=== PATIENT | female | born 2000 | race African-American/Black ===

== ENCOUNTER 2020-08-12 19:21 | Observation (INO) | payer BC ==
[2020-08-12] MEDS ORDERED: IV RINGERS,LACTATED 1000ML 1,000 ML IV SCH (19:30)
[2020-08-12 20:06] LABS: BILIRUBIN,URINE NEGATIVE (NEG); CLARITY,URINE CLEAR; COLOR,URINE YELLOW; NITRITE,URINE NEGATIVE (NEG); PH,URINE 7.5 (<5.0-8.0); PROTEIN,URINE NEGATIVE (NEG-TRACE)
[2020-08-12 20:18] LABS: BACTERIA,URINE FEW /HPF (0-FEW)
[2020-08-12 20:19] LABS: RBC,URINE 0 /HPF (0-2)
== END 2020-08-12 21:50 | disposition home or self-care (01) ==
LOC: 3 SO LND 19:21
PROVIDERS: ADMIT Obstetrics & Gynecology; ATTEND Obstetrics & Gynecology
DX: O26.893 Other specified pregnancy related conditions, third trimester (principal); R10.30 Lower abdominal pain, unspecified; Z3A.32 32 weeks gestation of pregnancy; Z98.891 History of uterine scar from previous surgery
CPT/HCPCS: 59025; 81001; 87086; G0378; G0379

== ENCOUNTER 2020-08-24 21:03 | Inpatient (IN) | payer BC ==
[~2020-08-24] VITALS: Ht 157.5 cm; Wt 64.1 kg
[2020-08-24 21:25] VITALS: BP 106/66
[2020-08-24 21:31] LABS: BILIRUBIN,URINE NEGATIVE (NEG); CLARITY,URINE CLEAR; COLOR,URINE YELLOW; NITRITE,URINE NEGATIVE (NEG); PH,URINE 7.5 (<5.0-8.0); PROTEIN,URINE 30 mg/dL (NEG-TRACE)
[2020-08-24 21:37] LABS: AMORPHOUS SEDIMENT,UR PRESENT /HPF
[2020-08-24 21:38] LABS: BACTERIA,URINE 0 /HPF (0-FEW)
[2020-08-24 21:44] LABS: BARBITURATES NEG (NEG); BENZODIAZEPINES NEG (NEG); CANNABINOIDS NEG (NEG); COCAINE NEG (NEG); METHADONE NEG (NEG); OPIATES NEG (NEG); PHENCYCLIDINE NEG (NEG)
[2020-08-24 21:50] LABS: AMPHETAMINE/METHAMPHETAMINE NEG (NEG)
[2020-08-24 21:55] LABS: AMNIO PT POSITIVE
[2020-08-24] MEDS ORDERED: IBUPROFEN 400 MG TABLET. PO PRN (22:00)
[2020-08-24] MEDS ORDERED: TERBUTALINE 1 MG/ML VIAL. SQ PRN ×2 (22:00→22:30)
[2020-08-24] MEDS ORDERED: OXYTOCIN 30 UNIT/500 ML PREMIX 500 ML IV PRN ×2 (22:00)
[2020-08-24] MEDS ORDERED: ACETAMINOPHEN 325 MG TABLET. PO PRN (22:00)
[2020-08-24] MEDS ORDERED: BUTORPHANOL 2 MG/ML VIAL. IVP PRN ×2 (22:00)
[2020-08-24] MEDS ORDERED: fentaNYL PF VIAL 100 MCG/2 ML VIAL IVP PRN ×3 (22:00)
[2020-08-24] MEDS ORDERED: LIDOCAINE 1% PF 30 ML VIAL. INJ PRN (22:00)
[2020-08-24] MEDS ORDERED: ONDANSETRON PF 4 MG/2 ML VIAL. IVP PRN (22:00)
[2020-08-24] MEDS ORDERED: 0.9 % SODIUM CHLORIDE 10 ML DISP.SYRIN. IV PRN (22:00)
[2020-08-24] MEDS: IV RINGERS,LACTATED 1000ML 1,000 ML IV SCH (22:01)
[2020-08-24] MEDS: BETAMET ACET&NA PHOS 30 MG/5 ML VIAL. IM SCH (22:24)
[2020-08-24 22:47] LABS: BASO % 0 % (0-3); EOS # 0.1 x10^3/uL (0.0-0.7); EOS % 1 % (0-3); HEMATOCRIT 30.6 % (36.0-47.0); HEMOGLOBIN 9.4 g/dL (12.0-15.5); LYMPH # 2.8 x10^3/uL (1.0-4.8); LYMPH % 25 % (24-48); MEAN CORPUSCULAR HEMOGLOBIN 22 pg (25-35); MEAN CORPUSCULAR HGB CONC 31 g/dL (31-37); MEAN CORPUSCULAR VOLUME 72 fL (79-100); MONO # 1.2 x10^3/uL (0.0-1.1); MONO % 10 % (0-9); NEUT # 7.4 x10^3/uL (1.8-7.7); NEUT % 65 % (31-73); PLATELET COUNT 304 x10^3/uL (140-400); RED BLOOD COUNT 4.26 x10^6/uL (3.50-5.40); RED CELL DISTRIBUTION WIDTH 17.6 % (11.5-14.5); WHITE BLOOD COUNT 11.4 x10^3/uL (4.0-11.0)
[2020-08-24] MEDS ORDERED: AMPICILLIN SODIUM 2 GM in IV NORMAL SALINE 100ML 100 ML IV ONE (23:00)
--- NOTE | 2020-08-24 23:36 | RAD ---
EXAM: Ultrasound US OB LIMITED 08/24/2020 10:34 PM INDICATION: Dates. Water broke COMPARISON: None FINDINGS: There is a single living intrauterine gestation in cephalic position. heart rate is [address] acenta is anterior. biometry: Biparietal diameter: 8.45 cm, 34 weeks 0 days Head circumference: 31.69 cm, 35 weeks 4 days Abdominal circumference: 29.70 cm, 33 weeks 5 days Femur length: 6.74 cm, 34 weeks 5 days HC/AC ratio: 1.07 LEONARD: 4.7 cm Estimated gestational age by ultrasound: 34 weeks 4 days. Estimated weight: 2371 g. IMPRESSION: 1. Single living intrauterine in cephalic position, heart rate 153 bpm. LEONARD 4.7 cm. 2. Estimated gestational age by ultrasound 34 weeks 4 days, EFW: 2371 g. Electronically signed by: Cierra Badillo MD (08/24/2020 11:34 PM) [id number]
[2020-08-25] MEDS: IV RINGERS,LACTATED 1000ML 1,000 ML IV SCH ×5 (00:21→22:00)
[2020-08-25] MEDS: AMPICILLIN SODIUM 1 GM in IV NORMAL SALINE 50ML 50 ML IV SCH ×6 (02:26→22:37)
[2020-08-25 04:58] LABS: ANISOCYTOSIS SLIGHT; HYPOCHROMIA MOD; MICROCYTOSIS MOD; OVALOCYTES OCC; PLT ESTIMATE ADEQUATE (ADEQUATE); POLYCHROMASIA SLIGHT
--- NOTE | 2020-08-25 10:30 | PDOC ---
GENERAL General: 19 yrs old lady 34weeks came in with SROM. Leaking Clear Amniotic fluid. VITAL SIGNS Vital Signs/I&O: Vital Signs Date Time Temp Pulse Resp B/P (MAP) Pulse Ox O2 Delivery O2 Flow Rate FiO2 08/24/20 22:29 86 106/66 08/24/20 21:25 98.5 20 Room Air 98.5 I & O 08/24/20 08/24/20 08/25/20 15:00 23:00 07:00 Intake Total 100 ml 2050 ml Balance 100 ml 2050 ml ALLERGIES Allergies: Allergies Coded Allergies Type Severity Reaction Last Updated Verified No Known Drug Allergies 08/24/20 No MEDS Medications: Current Medications Medications (Trade) Dose Ordered Sig/Samantha Route PRN Reason Start Time Stop Time Status Last Admin Dose Admin Ringer's Solution 1,000 ml @ 125 mls/hr Q8H IV 08/24/20 21:30 08/24/20 22:01 Ringer's Solution 1,000 ml @ 125 mls/hr Q8H IV 08/24/20 22:00 08/25/20 06:26 Terbutaline Sulfate (Brethine) 0.25 mg 1X PRN PRN SQ SEE COMMENTS 08/24/20 22:00 08/25/20 21:59 08/24/20 22:29 Ampicillin Sodium 2 gm/Sodium Chloride 100 ml @ 200 mls/hr 1X ONCE IV 08/24/20 23:00 08/24/20 23:29 DC 08/24/20 22:25 Ampicillin Sodium 1 gm/Sodium Chloride 50 ml @ 100 mls/hr Q4H IV 08/25/20 03:00 08/25/20 06:26 Betamethasone Sodium Phosphate (Celestone Soluspan) 12 mg Q24H IM 08/24/20 23:00 08/25/20 23:01 08/24/20 22:24 LAB Lab: Laboratory Tests Test 08/24/20 21:24 08/24/20 21:40 08/24/20 21:55 08/25/20 00:01 Urine Collection Type Unknown Urine Color Yellow Urine Clarity Clear Urine pH 7.5 (<5.0-8.0) Urine Specific [place] 1.015 (1.000-1.030) Urine Protein 30 mg/dL (NEG-TRACE) Urine Glucose (UA) Negative mg/dL (NEG) Urine Ketones (Stick) Negative mg/dL (NEG) Urine Blood Small (NEG) Urine Nitrite Negative (NEG) Urine Bilirubin Negative (NEG) Urine Urobilinogen Dipstick 1.0 mg/dL (0.2 mg/dL) Urine Leukocyte Esterase Small (NEG) Urine RBC 6-10 /HPF (0-2) Urine WBC 1-4 /HPF (0-4) Urine Squamous Epithelial Cells Mod /LPF Urine Amorphous Sediment Present /HPF Urine Bacteria 0 /HPF (0-FEW) Urine Mucus Mod /LPF Urine Opiates Screen Neg (NEG) Urine Methadone Screen Neg (NEG) Urine Barbiturates Neg (NEG) Urine Phencyclidine Screen Neg (NEG) Urine Amphetamine/Methamphetamine Neg (NEG) Urine Benzodiazepines Screen Neg (NEG) Urine Cocaine Screen Neg (NEG) Urine Cannabinoids Screen Neg (NEG) Urine Ethyl Alcohol Neg (NEG) Amniotic Fluid Swab Test Positive White Blood Count 11.4 x10^3/uL (4.0-11.0) H Red Blood Count 4.26 x10^6/uL (3.50-5.40) Hemoglobin 9.4 g/dL (12.0-15.5) L Hematocrit 30.6 % (36.0-47.0) L Mean Corpuscular Volume 72 fL (79-100) L Mean Corpuscular Hemoglobin 22 pg (25-35) L Mean Corpuscular Hemoglobin Concent 31 g/dL (31-37) Red Cell Distribution Width 17.6 % (11.5-14.5) H Platelet Count 304 x10^3/uL (140-400) Neutrophils (%) (Auto) 65 % (31-73) Lymphocytes (%) (Auto) 25 % (24-48) Monocytes (%) (Auto) 10 % (0-9) H Eosinophils (%) (Auto) 1 % (0-3) Basophils (%) (Auto) 0 % (0-3) Neutrophils # (Auto) 7.4 x10^3/uL (1.8-7.7) Lymphocytes # (Auto) 2.8 x10^3/uL (1.0-4.8) Monocytes # (Auto) 1.2 x10^3/uL (0.0-1.1) H Eosinophils # (Auto) 0.1 x10^3/uL (0.0-0.7) Basophils # (Auto) 0.0 x10^3/uL (0.0-0.2) Platelet Estimate Adequate (ADEQUATE) Giant Platelets Occ Polychromasia Slight Hypochromasia Mod Anisocytosis Slight Microcytosis Mod Ovalocytes Occ Treponema pallidum Antibody Nonreactive (Nonreactive) SARS-CoV-2 Antigen (Rapid) Negative (NEGATIVE) Laboratory Tests 08/24/20 21:55 ASSESSMENT & PLAN A&P Vital signs stable. Abdomen soft and having Mild Contractions. Cervix dilated to 1cm.,Vertex Presenting. Sono done 34 weeks . Will start her on Antibiotics and Beta Methasone . Plan to Deliver lateron. Justifications for Admission Other Justification BETHANY LOPEZ MD Aug 25, 2020 10:29
--- NOTE | 2020-08-25 11:48 | HP ---
ADMIT DATE: HISTORY OF PRESENT ILLNESS: This patient is a 19-year-old -Turkish female who is a 2, para 1 about 34 week size and came into the hospital with a history of having contractions and leaking amniotic fluid. The patient was admitted to the hospital because of spontaneous rupture of membranes and she did have a sonogram, which shows 34 weeks 4 days of at this time. She has had a labor with the previous as well and the patient admitted to the hospital for further observation and treatment. PHYSICAL EXAMINATION: VITAL SIGNS: Reveals the vital signs being stable. ABDOMEN: Soft, has mild contractions. The heart tones are 142 per minute, vertex presenting. PELVIC: Shows cervix about 1 cm dilated and leaking clear amniotic fluid. DIAGNOSES: 2, para 1, labor, spontaneous rupture of membranes. PLAN: IV fluids, IV antibiotics, betamethasone, observation and further plan for vaginal delivery. BETHANY LOPEZ MD DR: JASON/miguel JOB#: [id number] / [id number]
[2020-08-25] MEDS: BETAMET ACET&NA PHOS 30 MG/5 ML VIAL. IM SCH (22:34)
[2020-08-26] MEDS: IV RINGERS,LACTATED 1000ML 1,000 ML IV SCH ×8 (00:40→22:00)
[2020-08-26] MEDS: AMPICILLIN SODIUM 1 GM in IV NORMAL SALINE 50ML 50 ML IV SCH ×6 (02:44→23:00)
[2020-08-26] MEDS ORDERED: OXYTOCIN 10 UNIT/ML VIAL. ONE ×2 (11:03→12:11)
[2020-08-26] MEDS ORDERED: MORPHINE PF 10 MG/10 ML AMPUL. ONE (11:03)
[2020-08-26] MEDS ORDERED: PHENYLEPHRINE in 0.9% NACL PF 1 MG/10 ML SYRINGE. IV ONE (11:03)
[2020-08-26] MEDS ORDERED: fentaNYL PF VIAL 100 MCG/2 ML VIAL ONE (11:03)
[2020-08-26] MEDS ORDERED: CITRIC ACID/SODIUM CITRATE 30 ML SOLUTION. ONE ×2 (11:24→12:00)
[2020-08-26] MEDS ORDERED: ONDANSETRON PF 4 MG/2 ML VIAL. ONE (11:41)
--- NOTE | 2020-08-26 12:46 | PDOC ---
GENERAL General: 19 yrs old lady PTL and SROM Leaking Fluid. IV Pitocin started this AM. But Baby could not tolerate has Distress. FHT90/minute. Hence Stopped the Pitocin. ALLERGIES Allergies: Allergies Coded Allergies Type Severity Reaction Last Updated Verified No Known Drug Allergies 08/24/20 No ASSESSMENT & PLAN A&P Patient scheduled for Immediate due to Distress. Under Spinal Block done and alive Male Baby 4lbs 13oz delivered with good Apgars 8//9. EBL 400cc. Justifications for Admission Other Justification BETHANY LOPEZ MD Aug 26, 2020 12:46
[2020-08-26] MEDS ORDERED: ZOLPIDEM 5 MG TABLET. PO PRN (13:00)
[2020-08-26] MEDS ORDERED: TDaP (Adacel) per PROTOCOL. MC PRN (13:00)
[2020-08-26] MEDS ORDERED: MMR per PROTOCOL. MC PRN (13:00)
[2020-08-26] MEDS ORDERED: MAG HYDROX/ALUMINUM HYD/SIMETH 30 ML ORAL.SUSP PO PRN (13:00)
[2020-08-26] MEDS ORDERED: diphenhydrAMINE ORAL ELIXIR 12.5 MG/5 ML ML PO PRN (13:00)
[2020-08-26] MEDS ORDERED: DOCUSATE SODIUM 100 MG CAPSULE. PO PRN (13:00)
[2020-08-26] MEDS: KETOROLAC 30 MG/ML VIAL. IVP PRN ×2 (14:40→21:49)
[2020-08-26 15:45] VITALS: BP 100/57
[2020-08-26 16:20] VITALS: BP 100/59
[2020-08-26 16:45] VITALS: BP 104/70
--- NOTE | 2020-08-26 17:35 | OP ---
DATE OF SURGERY: PREOPERATIVE DIAGNOSIS: 2, para 1, labor, spontaneous rupture of membranes, distress. POSTOPERATIVE DIAGNOSIS: 2, para 1, labor, spontaneous rupture of membranes, distress. OPERATION PERFORMED: Lower segment section, assisted by Dr. Ruiz. OPERATIVE PROCEDURE: The patient was taken to the operating room. A spinal block was given. The patient was placed in the dorsal supine position. Da Silva catheter introduced into bladder for continuous bladder drainage. Lower abdomen was prepped and draped in the usual manner. Pfannenstiel incision was done. Abdomen opened in layers. The bladder flap peritoneum was dissected. Bladder was pushed way down the lower segment of the uterus and after this, an incision was made in the lower segment of the uterus, extended on either side using index fingers. Amniotomy done. A live male infant weighing 4 pounds 13 ounces delivered at 12:07 hours with the score of 8, 9 and 9 without any problem. Cord was clamped and cut. Cord blood was taken. Placenta removed. Uterus sutured in two layers sutured with #1 chromic catgut sutures and she did receive Pitocin after delivery of the placenta. Reperitonealization was done with continuous 0 chromic catgut sutures and all the blood clots in the pelvic cavity are removed. Uterus placed in the abdominal cavity and abdomen closed in layers using continuous 0 chromic catgut sutures for the peritoneum, the muscle, the fascia, 3-0 plain continuous sutures applied for subcutaneous tissue and 3-0 Vicryl subcutaneous sutures were placed. A pressure dressing was given. The patient was sent to the recovery room in good condition. No complications encountered at time of the procedure. Estimated blood loss about 400 mL. POSTOPERATIVE CONDITION: Stable. Baby is referred to [facility] for further care and treatment. BETHANY LOPEZ MD DR: JASON/miguel JOB#: [id number] / [id number]
[2020-08-26 17:45] VITALS: BP 106/60
[2020-08-26 20:00] VITALS: BP 105/66
[2020-08-27] VITALS (8 sets, daily range): BP systolic 92–104; BP diastolic 48–68
[2020-08-27] MEDS: AMPICILLIN SODIUM 1 GM in IV NORMAL SALINE 50ML 50 ML IV SCH ×6 (03:00→20:54)
[2020-08-27] MEDS: IV RINGERS,LACTATED 1000ML 1,000 ML IV SCH ×6 (05:30→20:53)
[2020-08-27] MEDS: KETOROLAC 30 MG/ML VIAL. IVP PRN (05:51)
[2020-08-27] MEDS: FERROUS SULFATE 325 MG TABLET. PO SCH ×3 (08:00→16:24)
[2020-08-27] MEDS: oxyCODONE/APAP 5/325 1 TAB TABLET PO PRN ×4 (09:14→23:54)
[2020-08-27 10:51] LABS: HEMATOCRIT 23.3 % (36.0-47.0); HEMOGLOBIN 7.1 g/dL (12.0-15.5)
--- NOTE | 2020-08-27 13:54 | PDOC ---
GENERAL General: Patient doing ok. No Problems. VITAL SIGNS Vital Signs/I&O: Vital Signs Date Time Temp Pulse Resp B/P (MAP) Pulse Ox O2 Delivery O2 Flow Rate FiO2 08/27/20 12:39 97.6 87 16 96/56 (69) Room Air 97.6 08/27/20 10:14 96 I & O 08/26/20 08/26/20 08/27/20 15:00 23:00 07:00 Output Total 150 ml 1100 ml Balance -150 ml -1100 ml ALLERGIES Allergies: Allergies Coded Allergies Type Severity Reaction Last Updated Verified No Known Drug Allergies 08/24/20 No MEDS Medications: Current Medications Medications (Trade) Dose Ordered Sig/Samantha Route PRN Reason Start Time Stop Time Status Last Admin Dose Admin Ferrous Sulfate (Feosol) 325 mg BIDWMEALS PO 08/26/20 17:00 08/27/20 09:14 Ketorolac Tromethamine (Toradol 30mg Vial) 30 mg PRN Q6HRS PRN IVP INFLAMMATION 08/26/20 14:30 08/31/20 14:29 08/27/20 05:51 Oxycodone/ Acetaminophen (Percocet 5/325) 1 tab PRN Q4HRS PRN PO MODERATE PAIN 08/27/20 09:00 08/27/20 09:14 LAB Lab: Laboratory Tests Test 08/27/20 10:25 Hemoglobin 7.1 g/dL (12.0-15.5) L Hematocrit 23.3 % (36.0-47.0) L Mean Corpuscular Hemoglobin Concent 31 g/dL (31-37) Laboratory Tests 08/27/20 10:25 ASSESSMENT & PLAN A&P Vital signs stable. No Fever. Lochia normal. Justifications for Admission Other Justification BETHANY LOPEZ MD Aug 27, 2020 13:54
[2020-08-28] MEDS: AMPICILLIN SODIUM 1 GM in IV NORMAL SALINE 50ML 50 ML IV SCH ×2 (02:59→05:56)
[2020-08-28 04:00] VITALS: BP 95/57
[2020-08-28] MEDS: oxyCODONE/APAP 5/325 1 TAB TABLET PO PRN ×3 (04:02→12:13)
[2020-08-28] MEDS: IV RINGERS,LACTATED 1000ML 1,000 ML IV SCH ×4 (05:30→13:40)
[2020-08-28 08:10] VITALS: BP 108/66
[2020-08-28] MEDS: FERROUS SULFATE 325 MG TABLET. PO SCH (08:12)
[2020-08-28 11:28] VITALS: BP 107/45
--- NOTE | 2020-08-28 11:52 | PDOC ---
GENERAL General: Patient doing ok. No Problems. VITAL SIGNS Vital Signs/I&O: Vital Signs Date Time Temp Pulse Resp B/P (MAP) Pulse Ox O2 Delivery O2 Flow Rate FiO2 08/28/20 11:28 98.6 85 18 107/45 (65) 97 Room Air 98.6 I & O 08/27/20 08/27/20 08/28/20 15:00 23:00 07:00 Intake Total 520 ml 1210 ml 600 ml Output Total 200 ml 750 ml 450 ml Balance 320 ml 460 ml 150 ml ALLERGIES Allergies: Allergies Coded Allergies Type Severity Reaction Last Updated Verified No Known Drug Allergies 08/24/20 No ASSESSMENT & PLAN A&P Patient has Hb 7.1 Will repeat Hb. Lochia normal. Justifications for Admission Other Justification BETHANY LOPEZ MD Aug 28, 2020 11:52
[2020-08-28] MEDS ORDERED: TRAM50TA PO (12:58)
[2020-08-28] MEDS ORDERED: DOCU-109 PO (13:00)
[2020-08-28] MEDS ORDERED: FERR325T72 PO (13:00)
--- NOTE | 2020-08-28 15:06 | NUR ---
Tramadol 50mg Q4hrs PRN with a quantity of 30 tabs was called to [facility] [address]. Patient aware.
[2020-08-28 15:50] VITALS: BP 104/71
--- NOTE | 2020-08-28 16:15 | NUR ---
Patient left with her mom around 1600. Discharge education gone over by this nurse, another nurse, and the nursery room nurse. Pain medication called in pharmacy. IV discontinued without complications. C Section incision BAR POINTER and intact with no signs of drainage noted. Patient and family stated understanding of discharge. No concerns noted.
--- NOTE | 2020-08-28 17:22 | NUR ---
Depression Scale done on 08/27/2020 by a different nurse. This nurse charted it in the system for the patients record.
--- NOTE | 2020-09-18 19:59 | DS ---
DATE OF DISCHARGE: 08/28/2020 SUBJECTIVE: This patient is a 19-year-old female who is 2, para 1 with a history of having contractions and labor. The patient was admitted to the hospital in active labor, having contractions and the cervix about 3 cm dilated and she has had a previous section, hence admitted for repeat at this time. OBJECTIVE: VITAL SIGNS: Stable. HEAD, EYES, EARS, NOSE, THROAT: Within normal limits. LUNGS: Clear. HEART: Sounds regular sinus rhythm. ABDOMEN: Soft, about 34-35 weeks' size . heart tones are 136 per minute, vertex presenting. HOSPITAL COURSE: She did undergo a repeat lower segment and a live male , 4 pounds 13 ounces delivered with good scores 8, 9, 9 and postoperatively she did well. No complications and the patient was dismissed to home care on 08/26/2020 with the advice to come back to the office in 2 weeks for further postoperative care and treatment. DIAGNOSES: 2, para 1, labor, spontaneous rupture of membranes, distress, repeat done. PLAN: She will be followed in the office in 2 weeks for further care and treatment. BETHANY LOPEZ MD DR: JASON/miguel JOB#: [id number] / [id number]
== END 2020-08-28 16:00 | disposition home or self-care (01) | DRG 786 ==
LOC: 3 SO LND 21:03 → OBSVTOIN 21:03 → 3 NORTH 08-26 15:40
PROVIDERS: ADMIT Obstetrics & Gynecology; ATTEND Obstetrics & Gynecology
PROC: 10D00Z1 Extraction of Products of Conception, Low, Open Approach (ICD-10-PCS; principal; 2020-08-26)
DX: O77.9 Labor and delivery complicated by fetal stress, unspecified (principal); O60.14X0 Preterm labor third trimester with preterm delivery third trimester, not applicable or unspecified; Z3A.34 34 weeks gestation of pregnancy; Z37.0 Single live birth; Z20.822 Contact with and (suspected) exposure to COVID-19
CPT/HCPCS: 36415; 76815; 80307; 81001; 84112; 85014; 85018; 85025; 86592; 86850; 86900; 86901; 87086; 87426; J0290; J0702; J1885; J2274; J2370; J2405; J2590; J3010; J3105; J7120; U0003; G0378